=== PATIENT | male | born 1950 | race Caucasian/White ===

== ENCOUNTER 2022-12-13 13:49 | Emergency (ER) | payer MEDICARE, BC ==
[2022-12-13 14:22] LABS: BASOPHILS ABSOLUTE AUTO 0.01 K/mm3 (0.01-0.08); BASOPHILS PERCENT AUTO 0.1 % (0.1-1.2); EOSINOPHILS ABSOLUTE AUTO 0.05 K/mm3 (0.04-0.54); EOSINOPHILS PERCENT AUTO 0.7 (0.8-7.0); HEMATOCRIT 46.5 % (40.1-51.0); HEMOGLOBIN 15.7 gm/dl (13.7-17.5); IMMATURE GRAN ABSOLUTE AUTO 0.01 K/mm3 (0.00-0.10); IMMATURE GRAN PERCENT AUTO 0.1 % (<=1.0); LYMPHOCYTES ABSOLUTE AUTO 0.84 K/mm3 (1.32-3.57); LYMPHOCYTES PERCENT AUTO 12.4 % (21.8-53.1); MEAN CORPUSCULAR HEMOGLOBIN 29.1 pg (25.7-32.2); MEAN CORPUSCULAR HGB CONC 33.8 g/dl (32.2-35.5); MEAN CORPUSCULAR VOLUME 86.3 fl (79.0-92.2); MEAN PLATELET VOLUME 9.8 fl (9.4-12.3); MONOCYTES ABSOLUTE AUTO 0.52 K/mm3 (0.30-0.82); MONOCYTES PERCENT AUTO 7.7 % (5.3-12.2); NEUTROPHILS ABSOLUTE AUTO 5.36 K/mm3 (1.78-5.38); PLATELET COUNT,PLT 263 K/mm3 (163-337); RED BLOOD CELL COUNT 5.39 M/mm3 (4.63-6.08); WHITE BLOOD CELL COUNT,WBC 6.79 K/mm3 (4.23-9.07)
[2022-12-13 14:49] LABS: A/G RATIO 1.3 (1-2); ANION GAP 13.3 (5-15); BILIRUBIN TOTAL 1.6 mg/dL (0.2-1.0); BUN/CREATININE RATIO 21.4 (14-18); CALCIUM 9.7 mg/dL (8.5-10.1); CREATININE 1.4 mg/dL (0.7-1.3); EST CRCL DRUG DOSING (CG) 47.69 mL/min; POTASSIUM,K 4.3 mEq/L (3.5-5.1); PROTEIN TOTAL,TP 7.2 g/dl (6.4-8.2)
== END 2022-12-13 17:49 | disposition home or self-care (01) ==
LOC: JD.ED 13:49
DX: R07.89 Other chest pain (principal); I12.9 Hypertensive chronic kidney disease with stage 1 through stage 4 chronic kidney disease, or unspecified chronic kidney disease; N18.9 Chronic kidney disease, unspecified; I25.2 Old myocardial infarction
CPT/HCPCS: 36415; 71045; 71045-26; 80053; 84484; 85025; 85379; 93005; 99285